=== PATIENT | female | born 2000 | race Caucasian/White ===

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

== ENCOUNTER 2023-04-15 08:36 | Emergency (ER) | payer MEDICAID, SELFPAY ==
[2023-04-15 08:38] VITALS: BP 163/81; PULSE 105; RESP 17; TEMP 38.1; O2SAT 99
[2023-04-15 08:54] LABS: Source Nasal/Nares
--- NOTE | 2023-04-15 09:13 | ED.GENADUL_ITS ---
Discharge Plan Disposition Patient Disposition: Home Condition: Stable Discharge Details Clinical Impression: Acute pharyngitis Primary Care Provider: Chidi Kaufman ED Provider: Hudson Ugarte Home Meds and New Rx's Prescriptions: Continued prenat.vits,raudel,lhi-xobs-wegig Tablet 1 tab PO DAILY hydroxyzine HCl 50 mg tablet 50 mg PO QHS Qty: 5 0RF Rx Instructions: Take 1 tab 30 minutes prior to dental procedure. Take 1 tab at home in the evening tonight as test dose. medroxyprogesterone 10 mg tablet See Rx Instructions .ROUTE .COMPLEX Qty: 10 0RF Dose Instruction: TAKE 1 TABLET BY MOUTH DAILY Rx Instructions: TAKE 1 TABLET BY MOUTH DAILY metformin 850 mg tablet 850 mg PO BID Qty: 60 9RF Discharge Instructions Instructions: Pharyngitis (ED) Additional Instructions: I suspect your pharyngitis is caused by mono or other viral infection. [place] testing is pending at time of discharge. Please drink plenty of fluid to stay hydrated. Please allow for plenty of rest. Please take ibuprofen over the counter. Take 600mg by mouth every 6 hours as needed for pain. Please take acetaminophen (tylenol) - 650mg every 6 hours by mouth as needed for pain. Please contact your primary care physician to arrange follow-up. Return to the ER immediately for any worsening or new concerning symptoms. Referrals: Chidi Kaufman, ANALYSIS SPECIALIST [Primary Care Provider] - Discharge Data Discharge Date/Time-TO BE ENTERED AT DEPARTURE: 04/15/23 09:23 Medical Decision Making 22-year-old female here with sore throat for the past 4 days. She does note some associated fatigue. Subjective fevers. No associated abdominal pain. Patient recently exposed to a relative who tested positive for mono. Pimoz-do-bxrh testing for COVID and strep negative. Monoscreen pending. Suspect mono versus other viral pharyngitis. No signs of focal bacterial infection. Patient is well-appearing and able to tolerate oral intake. Plan for discharge with outpatient follow-up. Usual customary discharge instructions reviewed with the patient. Lab Data Lab results reviewed: Yes I reviewed the patient's lab results. Labs: 04/15/23 08:41 Tonsil - Not Specified Group A Streptococcus Culture - Pending Laboratory Tests Range/Units 04/15/23 08:47 COVID-19 Source Nasal/Nares HPI General Mode of arrival: ambulatory . Date/Time Provider Initiated Documentation: 04/15/23 08:39 . Limitations to Documentation: no limitations . Information obtained by: patient . HPI Narrative: 22-year-old female here with sore throat for the past 4 days. Patient denies difficulty swallowing. She does note some associated fatigue. Subjective fevers. No associated abdominal pain. Patient recently exposed to a relative who tested positive for mono. Related Data Home Medications Medication Instructions Recorded Confirmed hydroxyzine HCl 50 mg tablet 50 mg PO QHS #5 tabs 04/23/22 04/15/23 prenat.vits,raudel,eyb-sggh-ntszy 1 tab PO DAILY 09/28/22 04/15/23 medroxyprogesterone 10 mg tablet See Rx Instructions .Route 02/09/23 04/15/23 .COMPLEX #10 tabs metformin 850 mg tablet 850 mg PO BID #60 tabs 02/18/23 04/15/23 Previous Rx's Medication Instructions Recorded hydroxyzine HCl 50 mg tablet 50 mg PO QHS #5 tabs 04/23/22 medroxyprogesterone 10 mg tablet See Rx Instructions .Route 02/09/23 .COMPLEX #10 tabs metformin 850 mg tablet 850 mg PO BID #60 tabs 02/18/23 Allergies Allergy/AdvReac Type Severity Reaction Status Date / Time No Known Allergies Allergy Verified 04/15/23 08:43 General Stated Complaint: Sorethroat DENISE: 4 Review of Systems Constitutional Constitutional: Reports as per HPI PFSH All Active Problems (Updated 04/15/23 @ 09:15 by Hudson Ugarte MD) Acute pharyngitis (Acute) Carpal tunnel syndrome on both sides (Acute) 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 Difficult to palpate spine. Patient declines x-rays, referral, or other evaluation. Have discussed risks. Family History Mother Healthy adult on routine physical examination Father Healthy adult on routine physical examination Grandparent No problems noted. 1 No problems noted. Social History Smoking/Tobacco Use Status: Never Smoking risk assessment performed?: Yes Alcohol Intake: never Drug use: Never Substance use type: does not use Housing: house Do you feel safe at home: Yes Do you feel safe in your relationship?: Yes Female Reproductive History Menstrual control method: none History History 0 Para Hx # Term Pregnancies Multiple births Hx # Pregnancies Ectopic pregnancies AB induced Hx Number of Living Children AB spontaneous Exam Const General: cooperative and no acute distress HENMT Mouth: moist mucous membranes Throat: uvula midline, no peritonsillar masses, posterior oropharynx abnormal erythema (mild); no cobblstoning, no edema and no exudates and other (no stridor or trismus) Eyes Conjunctivae: normal conjunctivae Sclera: normal sclerae Neck Neck: trachea midline and supple Resp Auscultation: clear to auscultation bilaterally, no rales, no rhonchi and no wheezes Cardio Rate: regular rate and not tachycardic Rhythm: regular rhythm GI Palpation: soft, not firm, no guarding, no masses, not rigid and nontender Skin General skin exam: no rashes or lesions noted Neuro General: patient alert, patient awake and tone normal Course Vital Signs Vital signs: Vital Signs Temperature 38.1 C H 04/15/23 08:38 Pulse 105 H 04/15/23 08:38 Respiratory Rate 17 04/15/23 08:38 Blood Pressure 163/81 H 04/15/23 08:38 Pulse Oximetry 99 04/15/23 08:38 Temperature 38.1 C H 04/15/23 08:38 Temperature Source Temporal Artery Scan 04/15/23 08:38 Pulse 105 H 04/15/23 08:38 Respiratory Rate 17 04/15/23 08:38 Respiratory Effort Normal 04/15/23 08:41 Blood Pressure 163/81 H 04/15/23 08:38 Blood Pressure Position Sitting 04/15/23 08:38 Pulse Oximetry 99 04/15/23 08:38 Oxygen Delivery Method Room Air 04/15/23 08:38 Oxygen Flow Rate 0 04/15/23 08:38 Pain Level 7 04/15/23 08:38 Lab/Test Results Lab/Test Results: 04/15/23 08:41 Tonsil - Not Specified Group A Streptococcus Culture - Pending Laboratory Tests Range/Units 04/15/23 08:47 COVID-19 Source Nasal/Nares POC Strep Test-SUNG(Rapid) Start: 04/15/23 08:45 Freq: .Rapid Strep Test Status: Active Protocol: Document 04/15/23 08:53 NICHOL (Rec: 04/15/23 08:53 NICHOL [id number]) Strep test-SUNG(Rapid)-POC POC-Strep test-SUNG (Rapid) Negative POC-Strep test-SUNG (Rapid) Negative
[2023-04-15 09:22] LABS: Mono Screening Negative (Negative)
[2023-04-15 09:28] LABS: COVID-19 PCR Negative (Negative)
== END 2023-04-15 09:23 | disposition home or self-care (01) ==
PROVIDERS: Emergency Provider Student in an Organized Health Care Education/Training Program; PCP Nurse Practitioner Pediatrics
DX: J02.9 Acute pharyngitis, unspecified (principal); R53.83 Other fatigue; R50.9 Fever, unspecified; Z20.828 Contact with and (suspected) exposure to other viral communicable diseases
CPT/HCPCS: 36415; 87426; 87635; 87880; 99282; 86308; 87081; 99283

== ENCOUNTER 2023-08-20 16:24 | Outpatient (REF) | payer MEDICAID, SELFPAY ==
[2023-08-20 21:36] LABS: Bilirubin Negative (Negative); Blood Negative (Negative); Clarity Turbid (Clear); Glucose Negative (Negative); Ketones Negative (Negative); Leukocyte Esterase Trace (Negative); Nitrite Negative (Negative); Urobilinogen 0.2 mg/dL (Up to 0.2)
[2023-08-20 21:50] LABS: Bacteria Few HPF (Negative); C & S Indicated? No/Sq. Contamination; Casts Negative LPF (Negative); Crystals Negative HPF (Negative); Epithelial Cells Many HPF (Negative); Mucus Moderate (Negative); RBC Negative HPF (0-2)
== END 2023-08-20 16:25 | disposition home or self-care (01) ==
LOC: LBN 16:24
PROVIDERS: PCP Nurse Practitioner Pediatrics; Visit Provider Nurse Practitioner Family
DX: N39.0 Urinary tract infection, site not specified (principal)
CPT/HCPCS: 81003; 81015